=== PATIENT | male | born 1985 ===

== ENCOUNTER 2021-03-10 16:00 | Outpatient (CLI) | payer OTHER ==
[2021-03-10 16:50] VITALS: BP 144/102
--- NOTE | 2021-03-10 16:50 | SLEEP CARE CONSULTATION ---
Information from patient questionnaire entered by Odessa Suarez. I have reviewed and concur with the information entered by Odessa Suarez. This document represents the service I personally performed and the decisions made by me, Jazz Whitt ARNP. History of Present Illness Service Date and Time: 03/10/2021 1600 Reason for Visit: New patient Chief Complaint: reports: Unrefreshed sleep, Snoring, Excessive daytime sleepiness (most days, not all), Fatigue, Frequent awakenings at night. denies: Observed pauses in breathing (sleeps alone) Date of Onset: 10 + years Usual bedtime: 2200; later on weekends Time it takes to fall asleep: An hour or more Snores at night: Yes Reasons for waking at night: reports: Other (Unknown). denies: Choking, Snoring, Gasping for air Toss, Turn, or Twitch while sleeping: Yes Recalls having dreams: No Usually gets out of bed at: 0500 - 0600; 7-8 am on weekends Feels refreshed in the morning: No Morning headache: Yes Sleepy or fatigued during the day: Yes Ever fallen asleep while driving: No Takes day naps: No Dreams during day naps: No Prior sleep studies: Yes Year and Where: A decade ago in [place] Additional HPI information: I had the pleasure of seeing RADHA FAN today regarding the possibility of him having a sleep disorder. His current complaints are fatigue, frequent night awakenings, insomnia, snoring and unrefreshed sleep. He has trouble going to sleep or staying asleep. He tried melatonin with limited improvement. He has been told he snores loudly when at friend's home, even a neighbor has told him this. He had one child at his friends that told him he sat up in bed while sleeping about 2 weeks ago. His father has a CPAP for sleep apnea. He had a HST sleep study over 10 years ago and it was negative at the time. He would like to get better sleep. 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 Patient is Single and lives in [place]. Have you smoked in the past 12 months: Yes Cigarettes per day (20/pack): 15 Years of smokin Smoking Pack Years: 3.5 Alcohol use: Yes Alcohol amount and frequency: 2-3 drinks a few times a week Caffeine use: Yes Caffeine amount and frequency: 1-2 cups coffee once a day or once every 4 days Family History Family history of sleep disordered breathing: Yes Family Hx Sleep Apnea: Father: Snoring, Sleep apnea - Treated (BiPAP) Allergies and Home Medications Drug allergies reviewed: Yes (NKDA) Home medication list reviewed: Yes Allergy and home medication list: Melatonin, prn Tylenol, prn Motrin, prn Review of Systems Weight gain over past 5 years: 10 Cardiovascular: reports: high blood pressure (possibly) Respiratory: reports: chronic cough Gastrointestinal: denies: heartburn Neurological: reports: headaches Psychiatric: denies: anxiety, depression, mood disorder Ear/Nose/Throat: reports: other. denies: tonsillectomy, wisdom teeth removed Musculoskeletal: reports: joint pain (sitffness right ankle) Physical Exam Blood Pressure: 144/102 (being evaluated for diastolic HTN) Cuff size: wrist Heart Rate: 98 O2 Saturation: 96 Height: 5 ft 5 in Weight: 216 lb Body Mass Index: 35.9 BMI Classification: Obese Neck circumference: 17 (inches) Nostrils: patent to airflow Mouth and throat: narrow oropharynx Soft palate: long Hard palate: normal Uvula visualization: 25% Mallampati Class III Tongue: enlarged in size with teeth santiago on lateral edges Tonsils: 2+ Chin and jaw: normal size and position Neck: normal w/o lymphadenopathy or thyromegaly Heart: regular rate and rhythm Lungs: clear bilaterally Impression and Plan 1. Suspected Obstructive Sleep Apnea-Hypopnea Syndrome, as suggested by a history of loud and irregular snoring, gasping or choking in sleep, morning headache, frequent awakening during the night, unrefreshed sleep, cognitive impairment, and excessive daytime sleepiness. Narrow oropharynx and obesity are common predisposing factors for obstructive sleep apnea-hypopnea syndrome. I recommend proceeding to polysomnography to confirm the diagnosis and to assess severity. If the patient has significant sleep disordered breathing, a manual CPAP titration study will also be performed to find the optimal treatment pressure. I informed the patient of what the sleep studies involve and after some discussion, obtained agreement to proceed. The pathophysiology of obstructive sleep apnea-hypopnea syndrome was discussed with the patient and health risks of cardiovascular and cerebrovascular disease if not treated. Risks of drowsy driving discussed in detail and patient advised to avoid long distance driving and to tube puller at the first sign of drowsiness. Patient agreed to plan. * Schedule polysomnography +- manual CPAP titration study and return in 1-2 weeks after the study to discuss result and initiate therapy. * Avoid long distance driving or driving when feeling sleepy. * Avoid alcohol, sedative and muscle relaxant around bedtime. * Attempt to lose weight. * Review instructions provided by trained office staff on how to prepare for the sleep study. * Return for follow-up after sleep study completed. Counseling Topics: Weight loss health impact Visit Type: In Office Time Spent with Patient (minutes): 31 Provider Statement: I spent 100% of the Face to Face Visit with the patient with greater than 50% spent counseling the patient and coordination of care.
== END 2021-03-10 16:01 | disposition home or self-care (01) ==
LOC: SC 16:00
PROVIDERS: ATTEND Nurse Practitioner Family
DX: G47.10 Hypersomnia, unspecified (principal); R51.9 Headache, unspecified; G47.8 Other sleep disorders; R06.83 Snoring; R41.89 Other symptoms and signs involving cognitive functions and awareness; F17.210 Nicotine dependence, cigarettes, uncomplicated; E66.9 Obesity, unspecified; Z68.35 Body mass index [BMI] 35.0-35.9, adult
CPT/HCPCS: 99203; 99212

== ENCOUNTER 2021-03-13 13:30 | Outpatient (CLI) | payer OTHER | END 2021-03-13 13:31 | disposition home or self-care (01) | LOC: SC 13:30 | PROVIDERS: ATTEND Nurse Practitioner Family | DX: G47.33 Obstructive sleep apnea (adult) (pediatric) (principal); R09.02 Hypoxemia; E66.9 Obesity, unspecified; Z68.35 Body mass index [BMI] 35.0-35.9, adult | CPT/HCPCS: 95806 ==

== ENCOUNTER 2021-03-17 08:14 | Outpatient (CLI) | payer OTHER ==
--- NOTE | 2021-03-17 09:03 | SLEEP CARE CONSULTATION ---
Information from patient questionnaire entered by Shana Singer. I have reviewed and concur with the information entered by Shana Singer. This document represents the service I personally performed and the decisions made by , Jazz Whitt ARNP. History of Present Illness Service Date and Time: 03/17/2021813 Initial [place] Sleepiness Scale score: 4 (in 2020) Current [place] Sleepiness Scale score: 6 Additional HPI information: RADHA FAN returns for follow up and results of the recently performed home sleep study. I explained the pathophysiology behind obstructive sleep apnea. We then spent quite a bit of time discussing different treatment options. For mild obstructive sleep apnea, surgery and oral appliance are alternatives to nasal CPAP therapy but in moderate or severe cases, nasal CPAP is the most effective and reliable treatment. Because apnea is primarily in supine position, then positional management therapy could be effective. Methods discussed such as positioning with pillows, using a T-shirt with tennis balls in the back, and shown commercial products that have a pillow format on back to prevent supine sleep. I reviewed the impact of weight changes on sleep apnea and strongly recommended losing weight. After some discussion, the patient opted to go with the nasal CPAP therapy. Nasal autoCPAP set at 5-20 cmH20 will be ordered with rationale explained. A manual titration study will be ordered if unable to find optimal pressure with office adjustments. I explained how CPAP machine works with sample devices Respironics Dreamstation and ResComfort Line [id number] and what to expect when using the machine. Using CPAP every night in order to get used to it was emphasized. Patient advised to put CPAP mask on before getting into bed so as not to fall asleep without CPAP. To assist acclimation to CPAP use, it could also be used for a short time during day while reading or watching TV. The patient was instructed to call the CPAP supplier to discuss any mechanical problem that may occur. If the mask given is uncomfortable or is difficult to keep on through the night even with adjustment, contact the CPAP supplier as many will replace with another mask style if notified before 30 days. If snoring or perceives is not getting enough air or too much air from the machine, notify this office. [facility] patient education PAP tips reviewed and given to patient. Patient counseled not drink alcohol less than 4 hours before bedtime as it can increase snoring and apnea. Patient was cautioned about risks of drowsy driving until sleepiness symptoms resolve. Sleep Study - Results Type of Sleep Study: Home sleep study Prior sleep studies: Yes Year and Where: A decade ago in [place] Polysomnography/Home Sleep Study results: Physician Impression: The quality of the study is good. The length of the study is adequate (> 240 minutes). Please also see the tabulated and graphic data. 1. Obstructive Sleep Apnea-Hypopnea (ICD-10 G47.33), moderate, with an AHI of 22.6/hr and joann SaO2 of 78%. During the study, the patient had 84 apneas (84 obstructive, 0 central, 0 mixed) and 67 hypopneas. The longest episode lasted 80.5 seconds. The respiratory events occurred more frequently during supine sleep (supine AHI was 90.1 and non-supine, 13.54). 2. Hypoxemia (ICD-10 R09.02), moderate, with the lowest oxygen saturation of 78 % and 15.3 minutes with SaO2 under 90%. Baseline oxygen saturation was normal (Average oxygen saturation was 94%). Allergies and Home Medications Home medication list reviewed: Yes (no changes) Review of Systems Review of systems same as previous: Yes (no changes) Physical Exam Heart Rate: 83 O2 Saturation: 95 Height: 5 ft 5 in Weight: 219 lb Body Mass Index: 36.4 BMI Classification: Obese Impression and Plan 1. Obstructive Sleep Apnea-Hypopnea Syndrome, moderate, with lowest oxygen saturation of 78%. Obviously this is the cause of the patients symptoms of unrefreshed sleep, and excessive daytime sleepiness. Positive pressure therapy could benefit hypertension. As mentioned above, the patient will be started on nasal autoCPAP therapy with pressure set at 5-20 cmH2O. A manual titration study will be completed if unable to find optimal treatment pressure with office adjustments. Compliance guidelines also reviewed. A copy of compliance guidelines will be given for reference at check out. Because the apnea is more severe supine, I instructed to avoid sleeping supine using pillow positioning until able to start CPAP use. * Nasal auto CPAP therapy, pressure at 5-20 cm H2O. * Attempt to lose weight. * Avoid alcohol consumption near bedtime. * Avoid supine sleep until using CPAP. * The patient is again cautioned about driving until sleepiness completely resolves. * Return one month after CPAP obtained. I will assess response to therapy and compliance at that time. Counseling Topics: Weight loss health impact Visit Type: In Office Time Spent with Patient (minutes): 20 Provider Statement: I spent 100% of the Face to Face Visit with the patient with greater than 50% spent counseling the patient and coordination of care.
== END 2021-03-17 08:15 | disposition home or self-care (01) ==
LOC: SC 08:14
PROVIDERS: ATTEND Nurse Practitioner Family
DX: G47.33 Obstructive sleep apnea (adult) (pediatric) (principal); R09.02 Hypoxemia; E66.9 Obesity, unspecified; Z68.36 Body mass index [BMI] 36.0-36.9, adult
CPT/HCPCS: 99212; 99213

== ENCOUNTER 2023-09-29 09:55 | Emergency (ER) | payer OTHER ==
[2023-09-29 10:17] LABS: BILIRUBIN,URINE NEGATIVE (NEGATIVE); GLUCOSE, URINE (UA) NEGATIVE (NEGATIVE); KETONES,URINE (UA) NEGATIVE (NEGATIVE); LEUKOCYTE ESTERASE, URINE NEGATIVE (NEGATIVE); NITRITE,URINE NEGATIVE (NEGATIVE); OCCULT BLOOD,URINE TRACE-INTA (NEGATIVE); PROTEIN,URINE NEGATIVE (NEGATIVE); UROBILINOGEN,URINE 0.2 (NORMAL) E.U./dL (NORMAL)
[2023-09-29 10:18] LABS: CLARITY,URINE CLEAR (CLEAR)
[2023-09-29 10:27] LABS: BASOPHILS # (AUTO) 0.1 10^3/uL (0.0-0.1); BASOPHILS % (AUTO) 0.9 %; EOSINOPHILS # (AUTO) 0.2 10^3/uL (0.0-0.7); EOSINOPHILS % (AUTO) 2.6 %; HCT - HEMATOCRIT 41.1 % (42.0-52.0); HGB - HEMOGLOBIN 13.9 g/dL (14.0-18.0); LYMPHOCYTES # (AUTO) 1.2 10^3/uL (1.5-3.5); LYMPHOCYTES % (AUTO) 17.4 %; MEAN CORPUSCULAR HEMOGLOBIN 30.5 pg (27.0-31.0); MEAN CORPUSCULAR HGB CONC 33.8 g/dL (32.0-36.0); MEAN CORPUSCULAR VOLUME 90.3 fL (80.0-94.0); MEAN PLATELET VOLUME 10.3 fL (7.4-11.4); MONOCYTES # (AUTO) 0.7 10^3/uL (0.0-1.0); NEUTROPHILS # (AUTO) 4.5 10^3/uL (1.5-6.6); NEUTROPHILS % (AUTO) 67.5 %; PLT - PLATELET COUNT 259 10^3/uL (130-450); RED BLOOD COUNT 4.55 10^6/uL (4.70-6.10); RED CELL DISTRIBUTION WIDTH 11.9 % (12.0-15.0); WHITE BLOOD COUNT 6.7 x10^3/uL (4.8-10.8)
[2023-09-29 10:39] LABS: ALBUMIN 4.6 g/dL (3.2-5.5); ALBUMIN/GLOBULIN RATIO 2.2 (1.0-2.2); BILIRUBIN,TOTAL 0.9 mg/dL (0.2-1.0); CALCIUM 9.4 mg/dL (8.5-10.3); CREATININE 1.1 mg/dL (0.6-1.3); POTASSIUM 3.7 mmol/L (3.5-4.5); TOTAL PROTEIN 6.7 g/dL (6.4-8.9)
--- NOTE | 2023-09-29 11:27 | ED Physician Documentation ---
PD HPI ABD PAIN - Stated complaint Stated Complaint: BACK PAIN - Chief complaint Chief Complaint: Abd Pain - History obtained from History obtained from: Patient - History of Present Illness Timing - onset: How many hours ago (2-3), Today Timing - duration: Hours Timing - details: Abrupt onset, Still present, Constant. No: Waxing and waning Quality: Cramping, Aching, Pain Location: RLQ Radiation: Right flank (onset actually at flank and has migrated to right lower abd with radiation to inguinal area.) Improved by: No: Laying still, Position, Meds (ibuprofen without improvement.) Worsened by: No: Moving, Palpation Associated symptoms: Nausea. No: Fever, Diarrhea, Constipation, Dysuria Similar symptoms before: Has not had sx before Review of Systems Constitutional: denies: Fever, Chills Cardiac: denies: Chest pain / pressure, Palpitations Respiratory: denies: Dyspnea, Cough GI: reports: Abdominal Pain, Nausea. denies: Constipation, Diarrhea : denies: Dysuria, Frequency PD PAST MEDICAL HISTORY - Past Medical History Past Medical History: Yes Cardiovascular: None Respiratory: None GI: None : Other (has not had kidney stones in the past. ) - Past Surgical History Past Surgical History: Yes Ortho: Other - Present Medications Home Medications: Ambulatory Orders Medication Instructions Recorded Confirmed HYDROcod/ACETAM 5/325 [[place] 5/325] 1 ea PO Q6H PRN #14 tablet 09/29/23 Ibuprofen [Motrin] 600 mg PO TID PRN #25 tab 09/29/23 Ondansetron Odt [Zofran] 4 mg TL Q6H PRN #10 tablet 09/29/23 - Allergies Allergies/Adverse Reactions: Allergies Allergy/AdvReac Type Severity Reaction Status Date / Time cefdinir [From Omnicef] Allergy Hallucinati Verified 09/29/23 10:09 ons - Social History Does the pt smoke?: Yes Smoking Status: Current every day smoker Does the pt drink ETOH?: No Does the pt have substance abuse?: No - Immunizations Immunizations are current?: Yes PD ED PE NORMAL - Vitals Vital signs reviewed: Yes - General General: Alert and oriented X 3, Well developed/nourished, Other (appears in considerable pain, pacing the room. ) - Cardiac Cardiac: RRR, No murmur - Respiratory Respiratory: Clear bilaterally - Abdomen Abdomen: Normal bowel sounds, Soft, Non tender, Non distended, No organomegaly - Back Back: No spinal TTP, Other (right CVA tenderness to percussion moderately.) - Derm Derm: Normal color, Warm and dry - Neuro Neuro: Alert and oriented X 3, No motor deficit, Normal speech Results - Vitals Vitals: Vital Signs - 24 hr 09/29/23 09/29/23 09/29/23 10:05 12:57 13:37 Temperature 36.7 C Heart Rate 87 87 96 Respiratory 26 H 14 16 Rate Blood Pressure 182/121 H 139/92 H 139/90 H O2 Saturation 8 L 98 96 Oxygen O2 Source Room air - Labs Labs: Laboratory Tests 09/29/23 09/29/23 09/29/23 10:11 10:20 10:20 WBC 6.7 RBC 4.55 L Hgb 13.9 L Hct 41.1 L MCV 90.3 MCH 30.5 MCHC 33.8 RDW 11.9 L Plt Count 259 MPV 10.3 Neut # (Auto) 4.5 Lymph # (Auto) 1.2 L [place] # (Auto) 0.7 Eos # (Auto) 0.2 Baso # (Auto) 0.1 Absolute Nucleated RBC 0.00 Nucleated RBC % 0.0 Sodium 131 L Potassium 3.7 Chloride 98 L Carbon Dioxide 26 Anion Gap 7.0 BUN 16 Creatinine 1.1 Estimated GFR (MDRD) 74 L Glucose 89 Calcium 9.4 Total Bilirubin 0.9 AST 23 ALT 32 Alkaline Phosphatase 45 Total Protein 6.7 Albumin 4.6 Globulin 2.1 Albumin/Globulin Ratio 2.2 Lipase 29 Urine Color YELLOW Urine Clarity CLEAR Urine pH 6.0 Ur Specific [place] <=1.005 Urine Protein NEGATIVE Urine Glucose (UA) NEGATIVE Urine Ketones NEGATIVE Urine Occult Blood TRACE-INTA Urine Nitrite NEGATIVE Urine Bilirubin NEGATIVE Urine Urobilinogen 0.2 (NORMAL) Ur Leukocyte Esterase NEGATIVE Ur Microscopic Review NOT INDICATED Urine Culture Comments NOT INDICATED - Rads (name of study) abd/pelvic CT Relevant Findings:: Prelim report reviewed, EMP independent interpretation of test (2-3 mm stone in distal ureter at UVJ with moderately hydroureteral and mild hydronephrosis. Incidental left kidney cyst. No other acute findings. ) PD Medical Decision Making - ED course Complexity details: reviewed results (CT sowing right lower ureter stone with moderate obstruction. ), re-evaluated patient (he is much improved with IV fluids, Toradol, Zofran, and Dilaudid without side effects. Remains comfortable. ), considered differential (right flank to abd pain without effect from movement nor palpation most likely due to kidney stone. no history of those. ), d/w patient ED course: No pharmacies open today so sent with prepack (thought [facility] was but pt returned after going there and was not open. 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 Departure - Departure Disposition: 01 Home, Self Care Clinical Impression: Right sided abdominal pain, Ureterolithiasis Condition: Stable Record reviewed to determine appropriate education?: Yes Follow-Up: [facility] [Provider Group] Delroy Maddox MD [Provider Admit Priv/Credential] - Prescriptions: Ibuprofen [Motrin] 600 mg PO TID PRN #25 tab PRN Reason: Pain HYDROcod/ACETAM 5/325 [[place] 5/325] 1 ea PO Q6H PRN #14 tablet PRN Reason: Pain Ondansetron Odt [Zofran] 4 mg TL Q6H PRN #10 tablet PRN Reason: Nausea / Vomiting Comments: Your CT scan shows a small 2 to 3 mm stone at the end of the ureter at the junction of it with the bladder. The radiology report suggest that it is not quite passed into the bladder yet but very close. There is still low back pressuring of the ureter and kidney. The flow around the stone presume is adequate at this point so the pain is improved without having the pressure backwards towards the kidney. There may still be some up-and-down to the pain through the afternoon and evening. Given the location and size it should fully passed into the bladder very soon. I would continue with some anti-inflammatory such as ibuprofen 600 mg 3 times a day for the next several days anyway as there will be some cramping and pain from the irritation of the stone even after it passes. Ondansetron/Zofran if needed for nausea. To that add Tylenol 500 to 650 mg 4 times daily if needed for pain or hydrocodone/minute acetaminophen 1 to 2 tablets every 4-6 hours if needed for worse pain. I sent these prescriptions to [facility] pharmacy in [place] which is the only one open today. Hopefully the remaining course of passing the stone will be fairly mild and it is uncommon for it to become as severe as it was at this point. If it is significant enough despite the prescription medicines and certainly return to the ER. Incidental finding on your CT scan is a small cyst in the left kidney which is a benign process. Since its previously unknown, I would suggest following up with your primary care with consideration of an ultrasound of the kidney and a interval such as 6 months or so to ensure it is not expanding. Most of them stay the same size and remain there for a long time. No intervention is needed typically. I did not see other stones in the kidneys so this seems to be an isolated stone that you had formed and are now passing. My narcotic instructions Follow-up with your primary care if not fully improved into next week and if there is a longer time period of continued pain, you could follow-up with urology as well. Forms: PCP List Discharge Date/Time: 09/29/23 13:41
[2023-09-29] MEDS ORDERED: KETOROLAC 15 MG/ML VIAL IVP STA (11:32)
[2023-09-29] MEDS ORDERED: ONDANSETRON 4 MG/2 ML VIAL IVP STA (11:32)
[2023-09-29] MEDS ORDERED: SODIUM CHLORIDE 0.9% 1,000 ML IV STA (11:32)
[2023-09-29] MEDS ORDERED: HYDROmorphone 1 MG/ML CARPUJECT IVP STA (11:32)
--- NOTE | 2023-09-29 12:52 | CT Report ---
PROCEDURE: ABDOMEN/PELVIS W INDICATIONS: right flank pain today; ? kidney stone TECHNIQUE: Noncontrast 5 mm thick sections acquired from the diaphragms to the symphysis. 5 mm thick coronal an d sagittal reformats were acquired. For radiation dose reduction, the following was used: automated exposure control, adjustment of mA and/or kV according to patient size. COMPARISON: None FINDINGS: Image quality: Excellent. Lung bases and heart: Bibasilar dependent atelectasis are seen posteriorly. Heart size is mildly enla rged, no pericardial effusion.. Liver: . Well-circumscribed hypodensities are seen scattered in left and right hepatic lobes measures up to 1.2 cm in size in left hepatic lobe lateral segment series 2 image 23, 1.1 cm in size in centr al right hepatic lobe series 2 image 25 and 7 mm in size in posterior segment of right hepatic lobe s eries 2 image 23. Gallbladder and biliary tree: No radiopaque stones or wall thickening. No biliary dilation. Spleen: No splenomegaly. Pancreas: No pancreatic ductal dilation. Adrenals: No adrenal nodule. Kidneys and ureters: There is moderate right-sided hydronephrosis and mild right perinephric fat stra nding. Right hydroureter is also seen extending to the level of right UVJ. 2 to 3 mm calcification is noted in the region of right UVJ. No left-sided hydronephrosis or hydroureter. Likely left renal cor tical cyst is seen measures 9 mm in size. No perinephric fluid collection. Bowel and peritoneum: No bowel distension. No pathologic free fluid. No peritoneal free air. Lymph nodes: No central or retroperitoneal adenopathy. Vessels: No infrarenal aortic aneurysm. PELVIS Reproductive organs: Unremarkable. Bladder: No abnormal wall thickening, accounting for underdistension. Pelvic lymph nodes: No pelvic adenopathy by size criteria. Bones: No aggressive osseous abnormality. Other: No significant ventral or inguinal hernia. IMPRESSION: 1. Finding is suggestive of a 2 to 3 mm right UVJ stone with mild to moderate right-sided hydronephro sis and hydroureter. No left-sided hydronephrosis or hydroureter. Left renal cyst as above. 2. Multiple well-circumscribed hypodensities scattered in the liver parenchyma which may represent be nign process such as hepatic cysts. 3. No bowel obstruction or abnormal bowel wall thickening. No abscess collection. No free fluid or fr ee air. 4. Mild bibasilar dependent atelectasis. Reviewed by: Hiro Rojas MD on 09/29/2023 12:51 PM [facility] Approved by: Hiro Rojas MD on 09/29/2023 12:51 PM [facility] Station ID: [id number]
[2023-09-29 13:46] VITALS: BP 139/90; O2SAT 96
[2023-09-29] MEDS ORDERED: iohexoL-300 100 ML VIAL IVP ONE (13:46)
[2023-09-29] MEDS ORDERED: ONDANSETRON ODT 4 MG Prepack 2 TL PRN (14:16)
[2023-09-29] MEDS ORDERED: HYDROcod/ACET 5/325 Prepack 4 PO STA (14:16)
== END 2023-09-29 13:41 | disposition home or self-care (01) ==
LOC: ED 09:55
DX: N13.2 Hydronephrosis with renal and ureteral calculous obstruction (principal); F17.200 Nicotine dependence, unspecified, uncomplicated
CPT/HCPCS: 36415; 74177; 80053; 81003; 83690; 85025; 96374; 96375; 99284; J1170; Q9967; 81001; 87086

== ENCOUNTER 2024-03-07 09:07 | Outpatient (CLI) | payer OTHER ==
--- NOTE | 2024-03-07 09:18 | SLEEP CARE CONSULTATION ---
Information from patient questionnaire entered by Anaid Mckinney. I have reviewed and concur with the information entered by Anaid Mckinney. This document represents the service I personally performed and the decisions made by me, Jazz Whitt ARNP. History of Present Illness Service Date and Time: 03/07/2024 09 Previous diagnosis: Moderate AHI: 22.6 (03/14/2021) Reason for follow up: annual (NO CPAP NEEDS RE-EVALUATE) Prior sleep studies: Yes Year and Where: A decade ago in [place]; 03/14/2021 [facility] Type of Sleep Study: Home sleep study HPI additional information: I had the pleasure of seeing RADHA FAN today regarding the possibility of him having a sleep disorder. He was last seen in 2020 after sleep study showing moderate obstructive sleep apnea with an average AHI of 22.6. He returns today to the office. His current complaints are snoring, pauses in breathing, frequent night awakenings, restlessness at night, coughing fits in morning and unrefreshed sleep. He has not used the CPAP that he received in 2020 since then. He tried to use it for about 3-4 months but has issues with mask, pressures felt too high and he could not get connected with the [facility]. The patient tells me that he normally goes to bed around midnight, and it takes him approximately 30 minutes to fall asleep. He has been told that he snores aidan dly and irregularly at night. He has not been observed to stop breathing in his sleep. He can recall waking up several times during the night. He has not awakened for his own snoring, choking, and having to gasp for air. There is a lot of tossing and turning in his sleep. He usually wakes up at 0530 and does not feel refreshed. He usually does not have a morning headache. During the day he com [place] of feeling sleepy and fatigued. He has never fallen asleep while driving nor has any accident due to sleepiness. He reports having impaired concentration during the day. Sleep Study - Results Type of Sleep Study: Home sleep study Prior sleep studies: Yes Year and Where: A decade ago in [place] Subjective Initial [place] Sleepiness Scale score: 4 (in 2020) Current [place] Sleepiness Scale score: 3 (03/07/24) Allergies and Home Medications Known drug allergies: Yes (as listed) Drug allergies reviewed: Yes Home medication list reviewed: Yes (Lisinopril) Allergy and home medication list: Allergies cefdinir [From Omnicef] Allergy (Verified 03/05/24 09:04) Hallucinations Review of Systems Review of systems same as previous: No (CHEST PAINS) Physical Exam Vital signs obtained and entered by: ANAID Padilla MA Blood Pressure: 163/101 (RIGHT ARM) Cuff size: long Heart Rate: 87 O2 Saturation: 95 Height: 5 ft 5 in Weight: 237 lb 9.6 oz Body Mass Index: 39.5 BMI Classification: Obese Impression and Plan 1. Suspected Obstructive Sleep Apnea-Hypopnea Syndrome, as previously diagnosed and as suggested by a history of loud and irregular snoring, frequent awakening during the night, unrefreshed sleep and cognitive impairment. He has not been using his CPAP for a couple years. I recommend proceeding to polysomnography to confirm the diagnosis and to assess severity. I obtained agreement to proceed. He brought in his CPAP and I will adjust pressure to 5-10 cmH2O for patient comfort. The pathophysiology of obstructive sleep apnea-hypopnea syndrome was discussed with the patient and health risks of cardiovascular and cerebrovascular disease if not treated. Risks of drowsy driving discussed in detail and patient advised to avoid long distance driving and to tack puller machine at the first sign of drowsiness. Patient agreed to plan. * Schedule polysomnography * Avoid long distance driving or driving when feeling sleepy. * Avoid alcohol, sedative and muscle relaxant around bedtime. * Attempt to lose weight. * Review instructions provided by trained office staff on how to prepare for the sleep study. * Return for follow-up after sleep study completed. Adjust device pressure to (cmH2O): 5-10 Counseling Topics: Weight loss health impact Plan: PSG/HST Visit Type: In Office Time Spent with Patient (minutes): 25 Provider Statement: I spent 100% of the Face to Face Visit with the patient with greater than 50% spent counseling the patient and coordination of care.
[2024-03-07 09:34] VITALS: BP 163/101; O2SAT 95
== END 2024-03-07 09:08 | disposition home or self-care (01) ==
LOC: SC 09:07
PROVIDERS: ATTEND Nurse Practitioner Family
DX: R06.83 Snoring (principal); G47.8 Other sleep disorders; R41.89 Other symptoms and signs involving cognitive functions and awareness; E66.9 Obesity, unspecified; Z68.39 Body mass index [BMI] 39.0-39.9, adult
CPT/HCPCS: 99212; 99213

== ENCOUNTER 2024-04-15 19:25 | Outpatient (CLI) | payer OTHER | END 2024-04-15 19:26 | disposition home or self-care (01) | LOC: SC 19:25 | PROVIDERS: ATTEND Nurse Practitioner Family | DX: G47.33 Obstructive sleep apnea (adult) (pediatric) (principal); I10 Essential (primary) hypertension; E66.9 Obesity, unspecified; Z68.39 Body mass index [BMI] 39.0-39.9, adult | CPT/HCPCS: 95810 ==

== ENCOUNTER 2024-07-25 15:41 | Outpatient (CLI) | payer OTHER ==
--- NOTE | 2024-07-25 16:18 | SLEEP CARE CONSULTATION ---
Information from patient questionnaire entered by Anaid Mckinney. I have reviewed and concur with the information entered by Anaid Mckinney. This document represents the service I personally performed and the decisions made by , Jazz Whitt ARNP. History of Present Illness Service Date and Time: 07/25/2024 1541 Initial [place] Sleepiness Scale score: 4 (in 2020) Current [place] Sleepiness Scale score: 5 (07/25/24) Additional HPI information: RADHA FAN returns for follow up and results of the recently performed polysomnography. The sleep study done on 04/15/24 showed severe obstructive sleep apnea with an average AHI of 33.8 and joann oxygen saturation of 78%. I explained the pathophysiology behind obstructive sleep apnea. We then spent quite a bit of time discussing different treatment options. For mild obstructive sleep apnea, surgery and oral appliance are alternatives to nasal CPAP therapy but in moderate or severe cases, nasal CPAP is the most effective and reliable treatment. I reviewed the impact of weight changes on sleep apnea and strongly recommended losing weight. After some discussion, the patient would like to resume the nasal CPAP therapy with pressure set at 5-10 cmH20 (where it was previously). Patient counseled not drink alcohol less than 4 hours before bedtime as it can increase snoring and apnea. Patient was cautioned about risks of drowsy driving until sleepiness symptoms resolve. Patient denies drowsy driving. Sleep Study - Results Type of Sleep Study: Polysomnography (COMPLETED 05/05/24) Prior sleep studies: Yes Year and Where: A decade ago in [place] Polysomnography/Home Sleep Study results: IMPRESSION: The quality of the study is good. The patient had normal sleep efficiency. The sleep architecture was abnormal for sleep fragmentation and reduced amount of time spent in slow wave sleep (N3). Respiratory monitoring showed severe obstructive sleep apnea-hypopnea (AHI = 33.8) associated with frequent arousals, oxyhemoglobin desaturation and moderate hypoxia (joann oxygen saturation of 78%). The respiratory events occurred mainly during supine sleep (supine AHI = 83.2; non-supine = 15.90). Snore was moderate to loud in intensity. There was no significant periodic leg movement of sleep. Cardiac rhythm was normal sinus rhythm without significant arrhythmia. No abnormal behavior (parasomnia) observed during the night. Allergies and Home Medications Known drug allergies: Yes (as listed) Drug allergies reviewed: Yes Home medication list reviewed: Yes (Lisinopril) Allergy and home medication list: Allergies cefdinir [From Omnicef] Allergy (Verified 07/25/24 15:44) Hallucinations Review of Systems Review of systems same as previous: Yes (LEFT ARM) Physical Exam Vital signs obtained and entered by: ANAID Padilla MA Blood Pressure: 140/88 (LEFT ARM) Cuff size: regular Heart Rate: 89 O2 Saturation: 98 Height: 5 ft 5 in Weight: 233 lb Body Mass Index: 38.7 BMI Classification: Obese Impression and Plan 1. Obstructive Sleep Apnea-Hypopnea Syndrome, severe, with lowest oxygen saturation of 78%. Obviously this is the cause of the patients symptoms of unrefreshed sleep, and excessive daytime sleepiness. Positive pressure therapy could benefit hypertension. As mentioned above, the patient will be re-started on nasal autoCPAP therapy with pressure set at 5-10 cmH2O. He currently has a machine but needs a DME supplier. Compliance guidelines also reviewed. A copy of compliance guidelines will be given for reference at check out. Because the apnea is more severe supine, I instructed to avoid sleeping supine using pillow positioning until able to re-start CPAP use. 2. Hypoxemia, moderate, with a joann oxygen saturation of 78% and 10.7 minutes spent under 90%. The baseline oxygen saturation was normal with an average oxygen saturation of 94%. 3. Obesity, unspecified. Currently patients BMI is 38.7. He says he has lost weight. Obesity increases the risk of apnea, CPAP pressure requirements and overall health risks especially cardiovascular and diabetes. Thus patient is advised to continue to try to lose weight. * Restart Nasal auto CPAP therapy, pressure at 5-10 cmH2O. * Attempt to lose weight. * Avoid alcohol consumption near bedtime. * Avoid supine sleep until using CPAP regularly again. * The patient is again cautioned about driving until sleepiness completely resolves. * Return in 1-2 months. I will assess response to therapy and compliance at that time. Continue with device pressure at (cmH2O): 5-10 Counseling Topics: Sleeping position, Weight loss health impact Prescriptions: Device supplies Follow up with Sleep Care in: 1-2 months Plan: restart CPAP and compliance followup Visit Type: In Office Time Spent with Patient (minutes): 23 Provider Statement: I spent 100% of the Face to Face Visit with the patient with greater than 50% spent counseling the patient and coordination of care.
[2024-07-25 16:23] VITALS: BP 140/88; O2SAT 98
== END 2024-07-25 15:42 | disposition home or self-care (01) ==
LOC: SC 15:41
PROVIDERS: ATTEND Nurse Practitioner Family
DX: G47.33 Obstructive sleep apnea (adult) (pediatric) (principal); R09.02 Hypoxemia; E66.9 Obesity, unspecified; Z68.38 Body mass index [BMI] 38.0-38.9, adult
CPT/HCPCS: 99212; 99213